=== PATIENT | female | born 1965 | race Caucasian/White ===

== ENCOUNTER 2019-07-15 19:23 | Emergency (ER) | payer MEDICARE, MEDICAID ==
[~2019-07-15] VITALS: Ht 170.2 cm; Wt 123.0 kg
[2019-07-15 19:26] VITALS: BP 153/92
--- NOTE | 2019-07-15 19:38 | NUR ---
NOTIFIED PA BOWMAN OF TACHYCARDIA
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
== END 2019-07-15 21:01 | disposition home or self-care (01) ==
LOC: ER 19:24
DX: S63.601A Unspecified sprain of right thumb, initial encounter (principal); R00.0 Tachycardia, unspecified; W19.XXXA Unspecified fall, initial encounter; Y93.89 Activity, other specified; Y92.89 Other specified places as the place of occurrence of the external cause; Y99.8 Other external cause status
CPT/HCPCS: 29130; 73140; 93005; 99284

== ENCOUNTER 2019-08-20 19:40 | Emergency (ER) | payer MEDICARE, MEDICAID ==
[~2019-08-20] VITALS: Ht 170.2 cm; Wt 104.5 kg
--- NOTE | 2019-08-20 20:04 | NUR ---
RELIEVING RN FOR BREAK, PT IS BEING EVALUATED BY PROVIDER
[2019-08-20] MEDS ORDERED: HYDROcodone/acetaminophen 5mg/325mg tablet PO ONE (20:15)
[2019-08-20] MEDS ORDERED: LIDOcaine 5% patch TP ONE (20:15)
[2019-08-20] MEDS ORDERED: ketorolac trometh. 30mg/ml inj. IM ONE (20:15)
[2019-08-20] MEDS ORDERED: CYCL-1 PO (20:24)
[2019-08-20 21:01] VITALS: BP 126/81
== END 2019-08-20 21:13 | disposition home or self-care (01) ==
LOC: ER 19:40
DX: S39.012A Strain of muscle, fascia and tendon of lower back, initial encounter (principal); R25.2 Cramp and spasm; Z79.899 Other long term (current) drug therapy; X58.XXXA Exposure to other specified factors, initial encounter; Y93.89 Activity, other specified; Y92.89 Other specified places as the place of occurrence of the external cause; Y99.8 Other external cause status
CPT/HCPCS: 72100; 96372; 99283; J1885